=== PATIENT | male | born 1945 | race Caucasian/White ===

== ENCOUNTER 2017-02-12 13:44 | Emergency (ER) | payer OTHER ==
[~2017-02-12] VITALS: Ht 182.9 cm; Wt 108.9 kg
[2017-02-12 13:56] VITALS: BP 147/93
[2017-02-12] MEDS ORDERED: LEDI1TAB PO (13:56)
[2017-02-12] MEDS ORDERED: ONDANSETRON 4 MG/2 ML VIAL IVP ONE (14:10)
[2017-02-12] MEDS ORDERED: FAMOTIDINE 20 MG/2 ML VIAL IVP ONE (14:10)
[2017-02-12] MEDS ORDERED: NACL 0.9% 1,000 ML IV SCH (14:10)
[2017-02-12 14:31] LABS: BASOPHILS # (AUTO) 0.1 K/uL (0.00-0.22); BASOPHILS % (AUTO) 1.5 % (0.0-2.0); EOSINOPHILS # (AUTO) 0.3 K/uL (0-0.4); EOSINOPHILS % (AUTO) 5.9 % (0.0-4.0); HEMATOCRIT 35.8 % (36-52); HEMOGLOBIN 11.6 g/dL (12.0-18.0); LYMPHOCYTES # (AUTO) 1.3 K/uL (2.0-11.5); LYMPHOCYTES % (AUTO) 30.8 % (20.5-51.1); MEAN CORPUSCULAR HEMOGLOBIN 29 pg (27-31); MEAN CORPUSCULAR HGB CONC 32 g/dL (33-37); MEAN CORPUSCULAR VOLUME 89 fL (80-94); MONOCYTES # (AUTO) 0.4 K/uL (0.8-1.0); NEUTROPHILS # (AUTO) 2.2 K/uL (1.8-7.7); NEUTROPHILS % (AUTO) 51.8 % (42.2-75.2); PLATELET COUNT (AUTO) 177 K/uL (140-450); RED BLOOD CELL COUNT(AUTO) 4.02 MIL/uL (4.20-6.10); RED CELL DISTRIBUTION WIDTH 12.6 % (11.6-13.7); WHITE BLOOD COUNT (AUTO) 4.4 K/uL (4.8-10.8)
[2017-02-12 14:47] LABS: ANION GAP 6.9 (8-16); CALCIUM 8.7 mg/dL (8.5-10.1); CHLORIDE 103 mmol/L (98-107); CREATININE 1.1 mg/dL (0.6-1.3); GLUCOSE 166 mg/dL (74-106); POTASSIUM 3.9 mmol/L (3.5-5.1); SODIUM SERUM 140 mmol/L (136-145); UREA NITROGEN, BLOOD 13 mg/dL (7-18)
[2017-02-12 14:53] LABS: ALANINE AMINOTRANSFERASE 28 U/L (12-78); ALBUMIN 3.2 g/dL (3.4-5.0); ALKALINE PHOSPHATASE 79 U/L (46-116); AMYLASE 51 U/L (25-115); ASPARTATE AMINOTRANSFERASE 29 U/L (15-37); LIPASE 81 U/L (73-393); TOTAL BILIRUBIN 0.7 mg/dL (0.0-1.0)
--- NOTE | 2017-02-12 15:02 | NUR ---
Patient ambulated to bed 5. RN evaluating patient at bedside.
--- NOTE | 2017-02-12 15:03 | NUR ---
72M BIB SELF C/O ABDOMINAL DISTENTION X 4 MONTHS; PT STATES HX: HEP C AND HAS BEEN TAKING MEDICATION FOR HEP C X 12 WEEKS; ABDOMEN ROUND, FIRM, ASCITIC, DISTENDED AT THIS TIME; HYPOACTIVE BOWEL SOUNDS X 4 QUADRANTS; PT DENIES ANY PAIN, N/V/D AT THIS TIME, BUT STATES FEELS ABDOMINAL "TIGHTNESS" W/ AMBULATION; PT A&OX4, PERRLA, BL LUNG SOUNDS CLEAR, RR EVEN/UNLABORED, SKIN IS WARM/DRY/INTACT AT THIS TIME; PT RESTING IN BED W/ HOB ELEVATED AND IN LOWEST POSITION; POSITIONED FOR COMFORT; ER MD MADE AWARE OF STATUS. WILL CONTINUE TO MONITOR.
--- NOTE | 2017-02-12 15:04 | NUR ---
Dr. Olvera evaluating patient at bedside.
--- NOTE | 2017-02-12 16:30 | NUR ---
Patient appears to be resting comfortably in bed. Vital Signs within normal limits. Respirations even and unlabored. WILL CONTINUE TO MONITOR.
[2017-02-12 17:13] LABS: APPEARANCE,URINE CLEAR (CLEAR); BILIRUBIN,URINE 1+ (NEGATIVE); BLOOD, URINE NEGATIVE (NEGATIVE); COLOR,URINE YELLOW (YELLOW); LEUKOCYTE ESTERASE ,URINE NEGATIVE (NEGATIVE); NITRITE, URINE NEGATIVE (NEGATIVE); PH,URINE 5.5 (5.0-9.0); PROTEIN,URINE NEGATIVE (NEGATIVE); UGLUCOSE NEGATIVE (NEGATIVE)
[2017-02-12 17:24] LABS: ICTOTEST NEGATIVE (NEGATIVE); RBC,URINE NONE SEEN /HPF (0-5); WBC,URINE NONE SEEN /HPF (0-5)
[2017-02-12 17:25] LABS: BACTERIA,URINE RARE /HPF (None Seen); SQUAMOUS EPITHELIAL CELL,UR 0-3 (FEW) /LPF (0-3 (FEW))
[2017-02-12 17:29] LABS: AMPHETAMINE, URINE NEG. ng/ml (NEG <=1000); BARBITURATE, URINE NEG. ng/ml (NEG <=200); BENZODIAZEPINE, URINE NEG. ng/mL (NEG <=200); CANNABINOID, URINE NEG. ng/mL (NEG <=50); COCAINE, URINE NEG. ng/mL (NEG <=300); OPIATE, URINE POS. ng/mL (NEG <=2000); PHENCYCLIDINE SCREEN,URINE NEG. ng/mL (NEG <=25)
[2017-02-12 17:29] LABS: ALANINE AMINOTRANSFERASE 27 U/L (12-78); ALBUMIN 3.2 g/dL (3.4-5.0); ALCOHOL, BLOOD < 3 mg/dL (<3); ALKALINE PHOSPHATASE 77 U/L (46-116); ASPARTATE AMINOTRANSFERASE 33 U/L (15-37); BILIRUBIN,DIRECT 0.2 mg/dL (0.0-0.3); TOTAL BILIRUBIN 0.7 mg/dL (0.0-1.0); TOTAL PROTEIN, SERUM 7.7 g/dL (6.4-8.2)
[2017-02-12 17:30] LABS: INR 1.1 (0.8-1.2); PARTIAL THROMBOPLASTIN TIME 24.1 secs (22-35.6); PROTHROMBIN TIME 10.7 secs (10.8-13.4)
--- NOTE | 2017-02-12 17:45 | NUR ---
IV removed, catheter intact and site benign. Applied folded 4x4 gauze and tape to stop bleeding. PT TOELRATED PROCEDURE WELL.
[2017-02-12 17:47] VITALS: BP 107/53
--- NOTE | 2017-02-12 17:47 | NUR ---
Patient discharged with v/s stable. Written and verbal after care instructions given and explained. Patient alert, oriented and verbalized understanding of instructions. Ambulatory with steady gait. All questions addressed prior to discharge. ID band removed. Patient advised to follow up with PMD. Rx of ALBUTEROL 90MCG/ACTUATION given. Patient educated on indication of medication including possible reaction and side effects. Opportunity to ask questions provided and answered.
== END 2017-02-12 17:47 | disposition home or self-care (01) ==
LOC: MED 13:44
DX: R18.8 Other ascites (principal); J45.909 Unspecified asthma, uncomplicated
CPT/HCPCS: 36415; 80053; 80076; 80305; 81001; 82150; 83690; 85025; 85610; 85730; 96361; 96374; 96375; 99284; G0482; J2405; J3490; J7030

== ENCOUNTER 2017-11-22 06:10 | Emergency (ER) | payer OTHER ==
[~2017-11-22] VITALS: Ht 185.4 cm; Wt 115.0 kg
[~2017-11-22 06:10] MED LIST: LEDI1TAB PO
[2017-11-22 06:20] VITALS: BP 156/87
--- NOTE | 2017-11-22 06:26 | NUR ---
PT AMBULATED TO ER BED 04
--- NOTE | 2017-11-22 06:46 | NUR ---
Pt states Left medial knee pain x2-3 weeks. Described as a severe-ache. Pt states he has tried to self treat with medications given from freinds and stretching but is unable to achieve relief. A&Ox4. VSS. ER MD aware. Continue to monitor.
--- NOTE | 2017-11-22 07:21 | NUR ---
Report given to Tona LÓPEZ.
--- NOTE | 2017-11-22 07:28 | NUR ---
Patient discharged with v/s stable. Written and verbal after care instructions given and explained. Patient alert, oriented and verbalized understanding of instructions. Ambulatory with steady gait. All questions addressed prior to discharge. ID band removed. Patient advised to follow up with PMD. Rx of ARTHROTEC given. Patient educated on indication of medication including possible reaction and side effects. Opportunity to ask questions provided and answered.
[2017-11-22] MEDS ORDERED: IBUPROFEN 600 MG TAB PO ONE (07:35)
[2017-11-22 09:44] VITALS: BP 156/87
== END 2017-11-22 07:28 | disposition home or self-care (01) ==
LOC: MED 06:10
DX: M17.12 Unilateral primary osteoarthritis, left knee (principal)
CPT/HCPCS: 73562; 99284; Q0092

== ENCOUNTER 2019-02-11 16:54 | Inpatient (IN) | payer OTHER ==
[~2019-02-11] VITALS: Ht 177.8 cm; Wt 102.2 kg
[2019-02-11 16:58] VITALS: BP 178/96
--- NOTE | 2019-02-11 17:01 | NUR ---
PATIENT PRESENTS TO ED WITH INTERMITTENT LEFT SIDED CHEST PAIN X 4 DAYS . DENIES N/V. AAOX4 WITH EVEN AND STEADY GAIT. HR EVEN AND REGULAR; PT DENIES ANY FEVER,SOB, OR COUGH AT THIS TIME; PATIENT STATES PAIN OF 8/10 AT THIS TIME; DENIES ANY ETOH/DRUG USE. PATIENT POSITIONED FOR COMFORT; HOB ELEVATED; BEDRAILS UP X2; BED DOWN. PT CONNECTED TO MONITOR. ER MD MADE AWARE OF PT STATUS.
[2019-02-11] MEDS ORDERED: ASPIRIN 325 MG TAB PO ONE (18:00)
[2019-02-11 18:33] LABS: BASOPHILS % (AUTO) 0.5 % (0.0-2.0); EOSINOPHILS # (AUTO) 0.1 K/uL (0-0.4); EOSINOPHILS % (AUTO) 1.3 % (0.0-4.0); HEMATOCRIT 37.3 % (36-52); HEMOGLOBIN 12.8 g/dL (12.0-18.0); LYMPHOCYTES # (AUTO) 1.2 K/uL (2.0-11.5); LYMPHOCYTES % (AUTO) 16.7 % (20.5-51.1); MEAN CORPUSCULAR HEMOGLOBIN 30 pg (27-31); MEAN CORPUSCULAR HGB CONC 34 g/dL (33-37); MEAN CORPUSCULAR VOLUME 87.4 fL (80-94); MONOCYTES # (AUTO) 0.4 K/uL (0.8-1.0); MONOCYTES % (AUTO) 6.3 % (1.7-9.3); NEUTROPHILS # (AUTO) 5.2 K/uL (1.8-7.7); NEUTROPHILS % (AUTO) 75.2 % (42.2-75.2); PLATELET COUNT (AUTO) 216 K/uL (140-450); RED BLOOD CELL COUNT(AUTO) 4.27 MIL/uL (4.20-6.10); RED CELL DISTRIBUTION WIDTH 13.4 % (11.6-13.7)
[2019-02-11 18:55] LABS: ALBUMIN 3.8 g/dL (3.4-5.0); ANION GAP 8.6 (8-16); ASPARTATE AMINOTRANSFERASE 24 U/L (15-37); CARBON DIOXIDE 30.5 mmol/L (21-32); CHLORIDE 100 mmol/L (98-107); CREATININE 1.1 mg/dL (0.7-1.3); GLUCOSE 132 mg/dL (74-106); LIPASE 148 U/L (73-393); POTASSIUM 4.1 mmol/L (3.5-5.1); SODIUM SERUM 135 mmol/L (136-145); TOTAL BILIRUBIN 0.7 mg/dL (0.0-1.0); UREA NITROGEN, BLOOD 18 mg/dL (7-18)
[2019-02-11] MEDS: NACL 0.9% 1,000 ML IV SCH (19:07)
[2019-02-11] MEDS ORDERED: DOCUSATE SODIUM 100 MG GELCAP PO PRN (19:10)
[2019-02-11] MEDS ORDERED: ONDANSETRON 4 MG/2 ML VIAL IM/IVP PRN (19:10)
[2019-02-11] MEDS ORDERED: ACETAMINOPHEN 325 MG TAB PO PRN (19:10)
[2019-02-11] MEDS ORDERED: HYDROcodone/APAP 7.5/325 MG 1 TAB PO PRN (19:10)
--- NOTE | 2019-02-11 19:30 | NUR ---
RECEIVED BEDSIDE REPOT FROM ER NURSE, PATIENT AMBULATORY FROM WC TO BED, STEADY GAIT, AAOX 4, SKIN INTACT, LEFT FA 22 G SL, BP 163/85, DENIES CHEST PAIN, TOLD DR MORALES, MRSA SCREEN COLLECTED, ADMISSION QUESTIONS ANSWERED.
[2019-02-11 19:32] VITALS: BP 163/85
--- NOTE | 2019-02-11 19:35 | NUR ---
Patient will be admitted under the care of Dr Giordano. Admited to telemetry floor to room 127A. Report to given to RENE Mcbride.
[2019-02-11 19:43] LABS: CREATINE KINASE MB 3.1 ng/mL (0-3.6)
[2019-02-11 19:52] LABS: PROTHROMBIN TIME 10.7 secs (10.8-13.4)
[2019-02-11 19:53] LABS: CHOL/HDL RATIO 2.7 (1-4.5); FREE T4 (FREE THYROXINE) 1.1 ng/dL (0.76-1.46); MAGNESIUM 2.1 mg/dL (1.8-2.4); PHOSPHORUS 3.9 mg/dL (2.5-4.9); THYROID STIMULATING HORMONE 1.54 uIU/mL (0.34-3.74)
[2019-02-11] MEDS ORDERED: NITROGLYCERIN 0.4 MG TAB SL PRN (21:35)
[2019-02-11] MEDS ORDERED: SIMETHICONE 80 MG TAB.CHEW PO PRN (21:40)
[2019-02-11] MEDS: METOPROLOL 25 MG TAB PO SCH (21:42)
--- NOTE | 2019-02-11 21:42 | NUR ---
STARTED IVF NS AT 60 ML/HR, GAVE METOPROLOL AND COLACE.
[2019-02-11] MEDS ORDERED: MEDICATION REC. PHARMACY CONS. 1 EA MISC MC PRN (21:45)
--- NOTE | 2019-02-11 22:00 | NUR ---
EXPLAINED NEED FOR URINE SAMPLE, PATIENT VERBALIZED UNDERSTANDING
--- NOTE | 2019-02-11 23:00 | NUR ---
RESTING IN BED, NO SIGNS OF DISTRESS.
[2019-02-12] VITALS (7 sets, daily range): BP systolic 107–194; BP diastolic 56–80
--- NOTE | 2019-02-12 00:30 | NUR ---
DUE HEPARIN GIVEN
--- NOTE | 2019-02-12 02:40 | NUR ---
ASLEEP IN BED NO SIGNS OF DISTRESS.
--- NOTE | 2019-02-12 04:00 | NUR ---
BP 151/78 HR 55
--- NOTE | 2019-02-12 07:27 | NUR ---
ENDORSED PATIENT TO DAY SHIFT NURSE, PATIENT STABLE.
--- NOTE | 2019-02-12 08:00 | NUR ---
RECIEVED PT FROM VERIFICATION SPECIALIST NURSE ,PT IS AWAKE ON BED, NOT IN RESP.DISTRESS ,ON ROOM AIR. IV SITE INTACT AND PATENT.ENCORAGED VERBALIZE FEELINGS AND NEEDS. PLAN OF CARE WAS DISCUSSED WITH PT., BED ON LOW POSITION ,SIDE RAILS, CALL LIGHT IS WITHIN REACH
[2019-02-12 08:33] LABS: BARBITURATE, URINE NEG. ng/ml (NEG <=200); BENZODIAZEPINE, URINE NEG. ng/mL (NEG <=200); CANNABINOID, URINE NEG. ng/mL (NEG <=50); COCAINE, URINE NEG. ng/mL (NEG <=300); OPIATE, URINE POS. ng/mL (NEG <=2000); PHENCYCLIDINE SCREEN,URINE NEG. ng/mL (NEG <=25)
[2019-02-12 08:34] LABS: BILIRUBIN,URINE NEGATIVE (NEGATIVE); BLOOD, URINE TRACE-L (NEGATIVE); LEUKOCYTE ESTERASE ,URINE NEGATIVE (NEGATIVE); NITRITE, URINE NEGATIVE (NEGATIVE); UGLUCOSE NEGATIVE (NEGATIVE)
--- NOTE | 2019-02-12 08:41 | NUR ---
PATIENT HAS BEEN SCREENED AND CATEGORIZED MODERATE NUTRITION RISK. PATIENT WILL BE SEEN WITHIN 3-5 DAYS OF ADMISSION. 02/14/[address]
--- NOTE | 2019-02-12 08:45 | NUR ---
URINE SPECIMEN COLLECTED AND SENT TO LAB.
[2019-02-12] MEDS: METOPROLOL 25 MG TAB PO SCH (08:51)
[2019-02-12] MEDS: PANTOPRAZOLE 40 MG TABEC PO SCH (08:51)
[2019-02-12] MEDS: ECOTRIN 81 MG TABEC PO SCH (08:51)
[2019-02-12 08:57] LABS: APPEARANCE,URINE CLEAR (CLEAR); COLOR,URINE YELLOW (YELLOW)
[2019-02-12 08:58] LABS: RBC,URINE 0-5 /HPF (0-5); WBC,URINE 0-5 /HPF (0-5)
[2019-02-12] MEDS ORDERED: LISINOPRIL 5 MG TAB PO SCH ×2 (09:00→10:45)
--- NOTE | 2019-02-12 09:00 | NUR ---
PATIENT COMPLAINED OF FEELING NAUSEOUS, MED WAS GIVEN PER ORDER. PATIENT WAS INSTRUCTED NOT TO EAT ANYTHING TILL FEELING BETTER. PATIENT VERBALIZED UNDERSTANDING
--- NOTE | 2019-02-12 09:40 | NUR ---
PATIENT HAD EMESIS X 1, YELLOW, SMALL AMOUNT. DENIED DIZZINESS, CHEST PAIN. WILL CONTINUE TO MONITOR
--- NOTE | 2019-02-12 10:21 | NUR ---
DR. LEE WAS MADE AWARE OF PATIENT'S BRADYCARDIA. ADVISED TO CONTINUE TO MONITOR
[2019-02-12 11:11] LABS: BASOPHILS % (AUTO) 0.2 % (0.0-2.0); EOSINOPHILS % (AUTO) 0.2 % (0.0-4.0); HEMATOCRIT 37.9 % (36-52); HEMOGLOBIN 12.8 g/dL (12.0-18.0); LYMPHOCYTES # (AUTO) 0.7 K/uL (2.0-11.5); LYMPHOCYTES % (AUTO) 10.2 % (20.5-51.1); MEAN CORPUSCULAR HEMOGLOBIN 30 pg (27-31); MEAN CORPUSCULAR HGB CONC 34 g/dL (33-37); MEAN CORPUSCULAR VOLUME 87.8 fL (80-94); MONOCYTES # (AUTO) 0.2 K/uL (0.8-1.0); MONOCYTES % (AUTO) 3.5 % (1.7-9.3); NEUTROPHILS # (AUTO) 5.9 K/uL (1.8-7.7); NEUTROPHILS % (AUTO) 85.9 % (42.2-75.2); PLATELET COUNT (AUTO) 230 K/uL (140-450); RED BLOOD CELL COUNT(AUTO) 4.32 MIL/uL (4.20-6.10); RED CELL DISTRIBUTION WIDTH 13.2 % (11.6-13.7); WHITE BLOOD COUNT (AUTO) 6.9 K/uL (4.8-10.8)
[2019-02-12 11:22] LABS: ANION GAP 11.7 (8-16); CARBON DIOXIDE 28.4 mmol/L (21-32); CHLORIDE 101 mmol/L (98-107); GLUCOSE 146 mg/dL (74-106); POTASSIUM 4.1 mmol/L (3.5-5.1); SODIUM SERUM 137 mmol/L (136-145); UREA NITROGEN, BLOOD 18 mg/dL (7-18)
--- NOTE | 2019-02-12 12:30 | NUR ---
PATIENT WAS AWAKE, ALERT. RESPIRATION EVEN, UNLABOR ON ROOM AIR. DENIED PAIN, SOB, DIZZINESS, N/V. NO DISTRESS NOTED AT THIS TIME.
[2019-02-12] MEDS: NACL 0.9% 1,000 ML IV SCH (12:55)
--- NOTE | 2019-02-12 14:27 | NUR ---
VISITED PT. NOT IN RESP.DISTRESS,NO COMPLAINING OF PAIN, RESTED FAIRLY ON BED.PROVIDED ICE WATER ON BEDSIDE REQUESTED.CALL LIGHT WITH IN REACH
--- NOTE | 2019-02-12 16:00 | NUR ---
VISITED PATIENT,AWAKE ON BED, NOT IN RESP.DISTRESS .CALL LIGHT WITH IN REACH .
--- NOTE | 2019-02-12 16:00 | NUR ---
PATIENT WAS AWAKE, ALERT. RESPIRATION EVEN, UNLABOR ON ROOM AIR. DENIED PAIN, N/V. NO DISTRESS NOTED AT THIS TIME.
[2019-02-12] MEDS ORDERED: ATORVASTATIN 20 MG TAB PO SCH (17:00)
--- NOTE | 2019-02-12 18:00 | NUR ---
PATIENT WAS AWAKE, ALERT. RESPIRATION EVEN, UNLABOR ON ROOM AIR. PATIENT COMPLAINED OF CHEST PAIN, BUT REFUSED PAIN MEDICATION. NO DISTRESS NOTED AT THIS TIME
--- NOTE | 2019-02-12 19:30 | NUR ---
REPORT WAS GIVEN TO FIRE PREVENTION FORESTER NURSE. PATIENT IS STABLE AT THIS TIME
--- NOTE | 2019-02-12 19:31 | NUR ---
RECEIVED REPORT FROM DAY SHIFT NURSE GEORGE-RN AT BEDSIDE. PT RESTING IN BED, AOX4, ON ROOM AIR WITH RIGHT FA #22G RUNNING NS @60ML/HR. DISCUSSED PLAN OF CARE AND PT VERBALIZED UNDERSTANDING. NO S/S OF RESPIRATORY DISTRESS OR DISCOMFORT NOTED AT THIS TIME. BED IN LOWEST POSITION, BED BREAKS ON, BOTH SIDE RAILS UP. BEDSIDE TABLE AND CALL LIGHT ARE WITHIN REACH. WILL CONTINUE TO MONITOR.
--- NOTE | 2019-02-12 20:00 | NUR ---
VITAL SIGNS TAKEN AND TOLERATED WELL. NO S/S OF RESPIRATORY DISTRESS OR DISCOMFORT NOTED AT THIS TIME. WILL CONTINUE TO MONITOR.
--- NOTE | 2019-02-12 20:16 | NUR ---
SCHEDULED MEDICATION HEPARIN GIVEN AND TOLERATED WELL. NO S/S OF RESPIRATORY DISTRESS OR DISCOMFORT NOTED AT THIS TIME. WILL CONTINUE TO MONITOR.
--- NOTE | 2019-02-12 21:00 | NUR ---
PT RESTING IN BED. NO S/S OF RESPIRATORY DISTRESS OR DISCOMFORT NOTED AT THIS TIME. WILL CONTINUE TO MONITOR.
--- NOTE | 2019-02-12 23:00 | NUR ---
PT SLEEPING IN BED. NO S/S OF RESPIRATORY DISTRESS OR DISCOMFORT NOTED AT THIS TIME. WILL CONTINUE TO MONITOR.
[2019-02-13] VITALS: BP 122/65
--- NOTE | 2019-02-13 | NUR ---
VITAL SIGNS TAKEN AND TOLERATED WELL. NO S/S OF RESPIRATORY DISTRESS OR DISCOMFORT NOTED AT THIS TIME. WILL CONTINUE TO MONITOR.
--- NOTE | 2019-02-13 02:00 | NUR ---
PT SLEEPING IN BED. NO S/S OF RESPIRATORY DISTRESS OR DISCOMFORT NOTED AT THIS TIME. WILL CONTINUE TO MONITOR.
[2019-02-13 04:00] VITALS: BP 137/76
--- NOTE | 2019-02-13 04:00 | NUR ---
VITAL SIGNS TAKEN AND TOLERATED WELL. NO S/S OF RESPIRATORY DISTRESS OR DISCOMFORT NOTED AT THIS TIME. WILL CONTINUE TO MONITOR.
[2019-02-13] MEDS: NACL 0.9% 1,000 ML IV SCH (05:01)
--- NOTE | 2019-02-13 06:00 | NUR ---
PT CONTINUES TO SLEEP IN BED. NO S/S OF RESPIRATORY DISTRESS OR DISCOMFORT NOTED AT THIS TIME. WILL CONTINUE TO MONITOR.
[2019-02-13 06:14] LABS: T4 (THYROXINE) 7.3 ug/dL (4.5-12.0)
[2019-02-13 06:52] LABS: BASOPHILS # (AUTO) 0.1 K/uL (0.00-0.22); BASOPHILS % (AUTO) 0.5 % (0.0-2.0); EOSINOPHILS # (AUTO) 0.1 K/uL (0-0.4); EOSINOPHILS % (AUTO) 1.4 % (0.0-4.0); HEMATOCRIT 38.9 % (36-52); LYMPHOCYTES # (AUTO) 3.3 K/uL (2.0-11.5); LYMPHOCYTES % (AUTO) 31.8 % (20.5-51.1); MEAN CORPUSCULAR HEMOGLOBIN 30 pg (27-31); MEAN CORPUSCULAR HGB CONC 33 g/dL (33-37); MEAN CORPUSCULAR VOLUME 88.8 fL (80-94); MONOCYTES # (AUTO) 0.7 K/uL (0.8-1.0); MONOCYTES % (AUTO) 6.8 % (1.7-9.3); NEUTROPHILS # (AUTO) 6.1 K/uL (1.8-7.7); NEUTROPHILS % (AUTO) 59.5 % (42.2-75.2); PLATELET COUNT (AUTO) 181 K/uL (140-450); RED BLOOD CELL COUNT(AUTO) 4.38 MIL/uL (4.20-6.10); RED CELL DISTRIBUTION WIDTH 13.9 % (11.6-13.7); WHITE BLOOD COUNT (AUTO) 10.3 K/uL (4.8-10.8)
--- NOTE | 2019-02-13 07:14 | NUR ---
ENDORSED PT CARE TO DAY SHIFT NURSE BLUE AT BEDSIDE FOR CONTINUITY OF CARE.
[2019-02-13 07:32] LABS: ANION GAP 11.5 (8-16); CARBON DIOXIDE 27.4 mmol/L (21-32); CHLORIDE 103 mmol/L (98-107); POTASSIUM 4.9 mmol/L (3.5-5.1); SODIUM SERUM 137 mmol/L (136-145)
[2019-02-13 07:33] LABS: CREATININE 1.2 mg/dL (0.7-1.3); GLUCOSE 108 mg/dL (74-106); UREA NITROGEN, BLOOD 26 mg/dL (7-18)
[2019-02-13 07:41] LABS: MAGNESIUM 2.1 mg/dL (1.8-2.4); PHOSPHORUS 3.2 mg/dL (2.5-4.9)
--- NOTE | 2019-02-13 07:45 | NUR ---
RECIEVED REPORTING FROM [place] AIDE.PT.WAS AWAKE ,RESPIRATION EVEN,UNLABORED ,ON ROOM AIR. IV SITE INTACT AND PATENT.PLAN OF CARE WAS DISCUSSED WITH THE PATIENT. CALL LIGHT WITH IN REACH.
[2019-02-13 08:00] VITALS: BP 152/80
[2019-02-13 08:10] VITALS: BP 152/80
[2019-02-13] MEDS ORDERED: LISINOPRIL 10 MG TAB PO SCH (09:00)
[2019-02-13] MEDS: ECOTRIN 81 MG TABEC PO SCH (09:29)
[2019-02-13] MEDS: PANTOPRAZOLE 40 MG TABEC PO SCH (09:30)
--- NOTE | 2019-02-13 10:00 | NUR ---
PATIENT WAS AWAKE. RESPIRATION EVEN AND UNLABORED . IVF SITE INTACT AND PATENT.CALL LIGHT WITH IN REACH
[2019-02-13 12:00] VITALS: BP 126/90
--- NOTE | 2019-02-13 12:00 | NUR ---
PATIENT WAS AWAKE, ALERT. RESPIRATION EVEN, UNLABOR ON ROOM AIR. DENIED PAIN, SOB AT THIS TIME. NO DISTRESS NOTED. CALL LIGHT WITHIN REACH
--- NOTE | 2019-02-13 14:10 | NUR ---
PATIENT WAS UPDATED WITH DISCHARGE ORDER. NO DISTRESS NOTED AT THIS TIME
[2019-02-13] MEDS ORDERED: LOSA50TA66 PO (14:28)
--- NOTE | 2019-02-13 15:35 | NUR ---
DISCHARGE INSTRUCTION AND PRESCRIPTIONS WERE GIVEN AND EXPLAINED TO THE PATIENT. PATIENT VERBALIZED UNDERSTANDING. PATIENT REFUSED VACCINES. IV WAS REMOVED, CATHETER INTACT, NO ACTIVE BLEEDING SEEN. COAL CONVEYOR OPERATOR AND ID BAND WERE REMOVED. ALL BELONGINGS WERE TAKEN WITH THE PATIENT. PATIENT WAS ESCORTED OUT BY STAFF, AMBULATORY IN WHEELCHAIR. PATIENT IS STABLE AT THIS TIME
== END 2019-02-13 15:35 | disposition home or self-care (01) | DRG 206 ==
LOC: MED 16:54 → MMU 19:13
PROVIDERS: ADMIT General Practice; ATTEND General Practice
DX: M94.0 Chondrocostal junction syndrome [Tietze] (principal); I42.9 Cardiomyopathy, unspecified; E87.1 Hypo-osmolality and hyponatremia; J45.909 Unspecified asthma, uncomplicated; E78.5 Hyperlipidemia, unspecified; R73.9 Hyperglycemia, unspecified; I10 Essential (primary) hypertension; Z79.899 Other long term (current) drug therapy
CPT/HCPCS: 36415; 71045; 71250; 80048; 80053; 80305; 81001; 82150; 82550; 82553; 83036; 83690; 83735; 83880; 84100; 84436; 84439; 84443; 84479; 84484; 85025; 85610; 85730; 87081; 93005; 99285; J1644; J2405; J7030; Q0092

== ENCOUNTER 2019-06-12 08:18 | Emergency (ER) | payer OTHER ==
[~2019-06-12] VITALS: Ht 182.9 cm; Wt 109.9 kg
[~2019-06-12 08:18] MED LIST changes: -LEDI1TAB PO; +LOSA50TA66 PO
[2019-06-12 08:20] VITALS: BP 140/94
[2019-06-12 10:09] LABS: BASOPHILS % (AUTO) 0.7 % (0.0-2.0); EOSINOPHILS # (AUTO) 0.1 K/uL (0-0.4); EOSINOPHILS % (AUTO) 3.4 % (0.0-4.0); HEMATOCRIT 32.5 % (36-52); HEMOGLOBIN 10.8 g/dL (12.0-18.0); LYMPHOCYTES # (AUTO) 1.1 K/uL (2.0-11.5); LYMPHOCYTES % (AUTO) 29.7 % (20.5-51.1); MEAN CORPUSCULAR HEMOGLOBIN 29 pg (27-31); MEAN CORPUSCULAR HGB CONC 33 g/dL (33-37); MEAN CORPUSCULAR VOLUME 88.2 fL (80-94); MONOCYTES # (AUTO) 0.4 K/uL (0.8-1.0); MONOCYTES % (AUTO) 11.3 % (1.7-9.3); NEUTROPHILS # (AUTO) 2.1 K/uL (1.8-7.7); NEUTROPHILS % (AUTO) 54.9 % (42.2-75.2); PLATELET COUNT (AUTO) 188 K/uL (140-450); RED BLOOD CELL COUNT(AUTO) 3.68 MIL/uL (4.20-6.10); RED CELL DISTRIBUTION WIDTH 13.5 % (11.6-13.7); WHITE BLOOD COUNT (AUTO) 3.8 K/uL (4.8-10.8)
[2019-06-12 11:03] LABS: ANION GAP 8.7 (8-16); ASPARTATE AMINOTRANSFERASE 24 U/L (15-37); CARBON DIOXIDE 29.5 mmol/L (21-32); CHLORIDE 106 mmol/L (98-107); CREATININE 1.1 mg/dL (0.7-1.3); GLUCOSE 116 mg/dL (74-106); POTASSIUM 4.2 mmol/L (3.5-5.1); SODIUM SERUM 140 mmol/L (136-145); UREA NITROGEN, BLOOD 18 mg/dL (7-18)
[2019-06-12 11:04] LABS: ALBUMIN 3.1 g/dL (3.4-5.0)
[2019-06-12 11:05] LABS: APPEARANCE,URINE CLEAR (CLEAR); BILIRUBIN,URINE NEGATIVE (NEGATIVE); BLOOD, URINE NEGATIVE (NEGATIVE); COLOR,URINE YELLOW (YELLOW); LEUKOCYTE ESTERASE ,URINE NEGATIVE (NEGATIVE); NITRITE, URINE NEGATIVE (NEGATIVE); UGLUCOSE NEGATIVE (NEGATIVE)
[2019-06-12 11:22] LABS: TOTAL BILIRUBIN 0.4 mg/dL (0.0-1.0)
[2019-06-12 11:42] VITALS: BP 140/94
== END 2019-06-12 11:42 | disposition home or self-care (01) ==
LOC: MED 08:18
DX: R60.0 Localized edema (principal); I42.9 Cardiomyopathy, unspecified; R03.0 Elevated blood-pressure reading, without diagnosis of hypertension; F17.210 Nicotine dependence, cigarettes, uncomplicated; F15.90 Other stimulant use, unspecified, uncomplicated; Z79.899 Other long term (current) drug therapy
CPT/HCPCS: 36415; 71045; 80053; 81003; 83880; 84484; 85025; 93005; 99284; Q0092

== ENCOUNTER 2020-04-16 11:19 | Inpatient (IN) | payer OTHER ==
[2020-04-15 10:40] VITALS: BP 175/70
[~2020-04-16] VITALS: Ht 182.9 cm; Wt 110.8 kg
[2020-04-16 11:27] VITALS: BP 149/102
--- NOTE | 2020-04-16 11:27 | NUR ---
Patient to bed 7. RN evaluating patient at bedside.
--- NOTE | 2020-04-16 11:34 | NUR ---
Dr. Canales is evaluating the patient at bedside.
--- NOTE | 2020-04-16 11:35 | NUR ---
PT C/O BLOOD IN STOOL FOR 7 DAYS W/O ABDOMINAL PAIN OR N/V/D; PT STATES HAVING INTERMITTENT ABDOMINAL BLOATING FOR A LONG TIME. NO DISCOLORATION OR TENDERNESS/REBOUND TENDERNESS ON PALPATION ON THE ABDOMEN. PT DENIES ANY FEVER, CP, SOB, OR COUGH AT THIS TIME; PATIENT STATES PAIN OF 0/10 AT THIS TIME; VSS; PATIENT POSITIONED FOR COMFORT; HOB ELEVATED; BEDRAILS UP X1; BED DOWN. ER MD MADE AWARE OF PT STATUS.
[2020-04-16] MEDS ORDERED: PANTOPRAZOLE 40 MG INJ VIAL IVP ONE (11:40)
--- NOTE | 2020-04-16 11:41 | NUR ---
gi tech at bedside.
[2020-04-16 12:09] LABS: BASOPHILS % (AUTO) 0.5 % (0.0-2.0); EOSINOPHILS # (AUTO) 0.2 K/uL (0-0.4); EOSINOPHILS % (AUTO) 2.8 % (0.0-4.0); HEMATOCRIT 37.7 % (36-52); HEMOGLOBIN 12.4 g/dL (12.0-18.0); LYMPHOCYTES # (AUTO) 2.6 K/uL (2.0-11.5); LYMPHOCYTES % (AUTO) 40.8 % (20.5-51.1); MEAN CORPUSCULAR HEMOGLOBIN 29 pg (27-31); MEAN CORPUSCULAR HGB CONC 33 g/dL (33-37); MEAN CORPUSCULAR VOLUME 88.4 fL (80-94); MONOCYTES # (AUTO) 0.5 K/uL (0.8-1.0); MONOCYTES % (AUTO) 8.5 % (1.7-9.3); NEUTROPHILS % (AUTO) 47.4 % (42.2-75.2); PLATELET COUNT (AUTO) 215 K/uL (140-450); RED BLOOD CELL COUNT(AUTO) 4.27 MIL/uL (4.20-6.10); RED CELL DISTRIBUTION WIDTH 13.5 % (11.6-13.7); WHITE BLOOD COUNT (AUTO) 6.3 K/uL (4.8-10.8)
[2020-04-16 12:25] LABS: PROTHROMBIN TIME 10.3 secs (10.8-13.4)
[2020-04-16 12:31] LABS: ALBUMIN 3.6 g/dL (3.4-5.0); ANION GAP 10.3 (8-16); ASPARTATE AMINOTRANSFERASE 36 U/L (15-37); CHLORIDE 102 mmol/L (98-107); CREATININE 1.1 mg/dL (0.6-1.3); GLUCOSE 110 mg/dL (74-106); POTASSIUM 4.3 mmol/L (3.5-5.1); SODIUM SERUM 141 mmol/L (136-145); TOTAL BILIRUBIN 0.5 mg/dL (0.0-1.0); UREA NITROGEN, BLOOD 17 mg/dL (7-18)
--- NOTE | 2020-04-16 12:52 | NUR ---
Dr. Canales is re-evaluating the patient at bedside.
[2020-04-16] MEDS ORDERED: NACL 0.9% 1,000 ML IV SCH (13:12)
[2020-04-16] MEDS ORDERED: ACETAMINOPHEN 325 MG TAB PO PRN (13:15)
[2020-04-16] MEDS ORDERED: ONDANSETRON 4 MG/2 ML VIAL IVP PRN (13:15)
[2020-04-16] MEDS ORDERED: POLYETHYLENE GLYCOL 17 GM/PKT PO SCH (13:49)
[2020-04-16] MEDS ORDERED: LACTULOSE 20 GM/30 ML UDC PO SCH (14:00)
[2020-04-16] MEDS ORDERED: MAGNESIUM CITRATE 300 ML BTL PO SCH (14:00)
[2020-04-16] MEDS: TAMSULOSIN 0.4 MG CAP PO SCH (14:11)
[2020-04-16 14:14] LABS: FREE T4 (FREE THYROXINE) 0.99 ng/dL (0.76-1.46); MAGNESIUM 2.1 mg/dL (1.8-2.4); PHOSPHORUS 3.2 mg/dL (2.5-4.9); THYROID STIMULATING HORMONE 1.51 uIU/mL (0.34-3.74)
--- NOTE | 2020-04-16 14:30 | NUR ---
LIQUID DIET LUNCH PROVIDED TO PT AT BEDSIDE.
--- NOTE | 2020-04-16 15:30 | NUR ---
PT AMBULATED TO THE BATHROOM WITH STEADY GAIT.
--- NOTE | 2020-04-16 17:02 | NUR ---
Dr. Fernandez is evaluating the patient at bedside.
[2020-04-16] MEDS: POLYETHYLENE GLYCOL 17 GM/PKT PO SCH (17:31)
[2020-04-16] MEDS: LACTULOSE 20 GM/30 ML UDC PO SCH ×2 (17:32→22:21)
[2020-04-16] MEDS ORDERED: TAMS0.4C96 PO (18:00)
--- NOTE | 2020-04-16 18:05 | NUR ---
Patient will be admitted to care of GI BLEED. Admited to MED-SURG. Will go to room 122A. Belongings list completed. Report to RENE Burrows.
--- NOTE | 2020-04-16 18:06 | NUR ---
PT ARRIVED FROM ED, CAME TO ED FOR C/O BLOODY STOOL X5 DAYS. AAOX4, ABLE TO MAKE NEEDS KNOWN, SPEAKING IN FULL SENTENCES, RR EVEN AND UNLABORED. VSS. DENIES ANY PAIN OR DISCOMFORT. SKIN PINK. IVF INFUSING WELL. INSTRUCTED PT TO KEEP NPO STATUS, PT UNDERSTOOD AND AGREED. MRSA SWAB COLLECTED. BP 147/64, HR 62, O2 95% ON RA 98.0 ORAL TEMP
[2020-04-16 19:15] VITALS: BP 147/84
--- NOTE | 2020-04-16 19:15 | NUR ---
RECEIVED PT FROM DAY RN. PT IS AOX4 ON ROOM AIR. AMBULATORY. MED SURG. NO C/O PAIN AT THIS TIME. NO S/S RESPIRATORY DISTRESS. SKIN WARM AND DRY. IVF INFUSING ON RIGHT AC 20G, NS AT KVO. BED ON LOW POSITION, SIDE RAILS UP X2, CALL LIGHT WITHIN REACH. ORIENTED TO HOSPITAL ROUTINE, PLAN OF CARE DISCUSSED, PT VERBALIZED UNDERSTANDING.
--- NOTE | 2020-04-16 21:00 | NUR ---
UP TO THE BATHROOM. VOIDED AND PASSED SOME GAS. HE SAID HE IS ALREADY CLEAN ON HIS BOWEL. INSTRUCTED TO CALL IF HAS BM SO WILL CHECK THE OUTPUT
[2020-04-16] MEDS: PANTOPRAZOLE 40 MG INJ VIAL IVP SCH (22:20)
[2020-04-16] MEDS: DOCUSATE SODIUM 100 MG GELCAP PO SCH (22:21)
--- NOTE | 2020-04-16 23:00 | NUR ---
MADE ROUNDS. PT IS SLEEPING. NO S/S OF ANY PAIN NOTED.
[2020-04-17] VITALS (7 sets, daily range): BP systolic 114–184; BP diastolic 66–87
--- NOTE | 2020-04-17 00:30 | NUR ---
MADE ROUNDS. PT AWAKE BUT NO /CO ANY DISCOMFORT /PAIN NOTED.
--- NOTE | 2020-04-17 02:00 | NUR ---
MADE ROUNDS. PT ASLEEP. NO S/S OF ANY DISCOMFORT NOTED. WILL CONTINUE TO MONITOR.
--- NOTE | 2020-04-17 05:00 | NUR ---
BED CHANGED. NO C/O ANY PAIN NOTED. STILL NEED SOME URINE SPECIMEN FOR UA. BOTTLE PROVIDED AND INSTRUCTED PT .
[2020-04-17 06:46] LABS: BASOPHILS # (AUTO) 0.1 K/uL (0.00-0.22); BASOPHILS % (AUTO) 1.2 % (0.0-2.0); EOSINOPHILS # (AUTO) 0.1 K/uL (0-0.4); EOSINOPHILS % (AUTO) 2.3 % (0.0-4.0); HEMATOCRIT 36.3 % (36-52); HEMOGLOBIN 11.9 g/dL (12.0-18.0); LYMPHOCYTES # (AUTO) 1.3 K/uL (2.0-11.5); LYMPHOCYTES % (AUTO) 25.8 % (20.5-51.1); MEAN CORPUSCULAR HEMOGLOBIN 29 pg (27-31); MEAN CORPUSCULAR HGB CONC 33 g/dL (33-37); MEAN CORPUSCULAR VOLUME 88.6 fL (80-94); MONOCYTES # (AUTO) 0.4 K/uL (0.8-1.0); MONOCYTES % (AUTO) 8.4 % (1.7-9.3); NEUTROPHILS # (AUTO) 3.1 K/uL (1.8-7.7); NEUTROPHILS % (AUTO) 62.3 % (42.2-75.2); PLATELET COUNT (AUTO) 197 K/uL (140-450); RED BLOOD CELL COUNT(AUTO) 4.09 MIL/uL (4.20-6.10); RED CELL DISTRIBUTION WIDTH 13.6 % (11.6-13.7); WHITE BLOOD COUNT (AUTO) 4.9 K/uL (4.8-10.8)
[2020-04-17 07:13] LABS: ANION GAP 9.7 (8-16); CHLORIDE 102 mmol/L (98-107); GLUCOSE 140 mg/dL (74-106); POTASSIUM 4.7 mmol/L (3.5-5.1); SODIUM SERUM 138 mmol/L (136-145); UREA NITROGEN, BLOOD 15 mg/dL (7-18)
--- NOTE | 2020-04-17 07:40 | NUR ---
ENDORSED PT IN STABLE CONDITION TO DAY RN FOR CONTINUITY OF CARE.
[2020-04-17 07:44] LABS: CHOL/HDL RATIO 2.7 (1-4.5); MAGNESIUM 2.2 mg/dL (1.8-2.4); PHOSPHORUS 2.9 mg/dL (2.5-4.9)
--- NOTE | 2020-04-17 08:44 | NUR ---
PATIENT HAS BEEN SCREENED AND CATEGORIZED MODERATE NUTRITION RISK. PATIENT WILL BE SEEN WITHIN 3-5 DAYS OF ADMISSION. 04/19/20 04/21/[address]
--- NOTE | 2020-04-17 08:52 | NUR ---
PT ALERT, AWAKE, ORIENTED, SKIN WARM TO TOUCH RESP. EVEN AND UNLABORED, ON ROOM AIR, IV SITE ON RIGHT WRIST,FLUSH WITH NORMAL SALINE, PATENT, PATIENT VERBALIZED HE IS CLEAN, MADE AWARE NEED TO CALL NURSE WHEN GOING TO BATHROOM, CALL LIGHT WITHIN EASY REACH.
[2020-04-17] MEDS ORDERED: TAMSULOSIN 0.4 MG CAP PO SCH (09:00)
[2020-04-17] MEDS: DOCUSATE SODIUM 100 MG GELCAP PO SCH (09:00)
[2020-04-17] MEDS: POLYETHYLENE GLYCOL 17 GM/PKT PO SCH (09:00)
[2020-04-17] MEDS: LACTULOSE 20 GM/30 ML UDC PO SCH (09:08)
[2020-04-17] MEDS: TAMSULOSIN 0.4 MG CAP PO SCH (09:08)
[2020-04-17] MEDS ORDERED: MIDAZOLAM 2 MG/2 ML VIAL ONE ×2 (09:11)
[2020-04-17] MEDS ORDERED: fentaNYL 0.05 MG/ML VIAL ONE (09:11)
[2020-04-17] MEDS: PANTOPRAZOLE 40 MG INJ VIAL IVP SCH (09:18)
--- NOTE | 2020-04-17 09:20 | NUR ---
GI CREW HERE AT BEDSIDE, WILL VB NET PROGRAMMER PATIENT FOR COLONOSCOPY, PATIENT ALERT, AWAKE, ABLE TO CONVERSED, NO SOB NOTED.REFUSED MIRALAX, COLACE.
[2020-04-17] MEDS: MIDAZOLAM 2 MG/2 ML VIAL IVP ONE ×2 (09:33→10:15)
[2020-04-17] MEDS: fentaNYL 0.05 MG/ML VIAL IVP ONE ×2 (09:34→10:15)
[2020-04-17] MEDS ORDERED: LACTULOSE 20 GM/30 ML UDC PO SCH (10:25)
--- NOTE | 2020-04-17 10:42 | NUR ---
CAME BACK FROM SURGERY, PATIENT, ALERT, AWAKE, SLEEPY, KEEP PATIENT COMFORTABLE.
--- NOTE | 2020-04-17 11:29 | NUR ---
RELAYED TO DR. GÓMEZ PATIENT NAUSEOUS, CLAIMED FEELING WELL, BP ELEVATED, MD WILL EVALUATE PATIENT
[2020-04-17] MEDS ORDERED: hydrALAZINE 20 MG/ML VIAL IVP SCH (12:00)
[2020-04-17 13:02] LABS: APPEARANCE,URINE CLEAR (CLEAR); BILIRUBIN,URINE NEGATIVE (NEGATIVE); BLOOD, URINE NEGATIVE (NEGATIVE); COLOR,URINE YELLOW (YELLOW); LEUKOCYTE ESTERASE ,URINE NEGATIVE (NEGATIVE); NITRITE, URINE NEGATIVE (NEGATIVE); UGLUCOSE NEGATIVE (NEGATIVE)
--- NOTE | 2020-04-17 13:25 | NUR ---
PATIENT WANT TO GO AMA, DR GÓMEZ TALKED TO HIM FOR A LONG TIME BUT PATIENT STILL IS INSISTENT TO GO HOME, PATIENT SIGNED AMA , PATIENT ALERT, AWAKE BUT SLEEPY, PATIENT REFUSED ANY FAMILY FOR ME TO CALL, NON COMPLIANT, WHEELED BY ELECTRON BEAM OPERATOR TO THE LOBBY.
--- NOTE | 2020-04-17 13:49 | NUR ---
FOLLOW UP CALL MADE TO PATIENT FAMILY, PATIENT ANSWER THE PHONE AND HE SAID HE IS FINE. UNABLE TO TALK TO OTHER FAMILY MEMBER
--- NOTE | 2020-04-17 15:30 | NUR ---
DC PLANNIN YRS OLD MALE PATIENT WAS ADMITTED FROM HOME WITH A DX OF GI BLEEDING. PT HAS A HX OF HTN , BPH . CXR SHOWED BLUNITING OF THE RIGHT SMALL PLEURAL EFFUSION. DR AISLINN WILDER PERFORMED EGD 3+ INTERNAL HEMORRHOID THE MOST LIKELY SOURCE OF BLEED , SEVER DIVERTICULOSIS . RECOMMENDED HIGH FIBER DIET . DC PLAN TO GO HOME WHEN STABLE. CM TO FOLLOW.
--- NOTE | 2020-04-17 15:59 | NUR ---
OUTDOOR LANDSCAPE ARCHITECT NOTE: Patient's Orientation Person Situation Place Time Information Provided By PATIENT Comments SW MET WITH PATIENT AT BEDSIDE. Nursery Attendant, Realtionship and Phone Number DIANE CARY [phone] Healthcare Power of Automotive Glass Technician No Does Patient Have a POLST No Identifying Problems No Social Work Triggers Is A Social Work Consult Needed No Mandate Report Filed No Explanation Of Identifying Problems PATIENT IS A 75-YEAR-OLD MALE ADMITTED FOR GI BLEED. PATIENT HAS PMHX OF ASTHMA, HYPERTENSION, AND BPH. Admitted From Home Pre-Admission Level Of Functioning Status Independent/Ambulatory Prior Resources/Services Used In Last 12 Months No Prior Resources Used Prior DME No Prior DME Used Living Situation Lives With Family House Patient Had Caregiver No Home Support CG/Fam Able To Meet Need Financial Issues No Known Financial Issue Factors/Needs No D/C Needs Identified Pt/Rep Participated In Discharge Plan Yes Patient/Family Agress With Discharge Plan Yes Discharge Plan Comments TENTATIVE DISCHARGE PLAN IS FOR PATIENT TO RETURN HOME. DC Plan Status Initiated
[2020-04-17] MEDS ORDERED: MINERAL OIL 30 ML UDC PO SCH (16:00)
[2020-04-18] MEDS ORDERED: MINERAL OIL 30 ML UDC PO SCH (09:00)
== END 2020-04-17 13:30 | disposition left against medical advice (07) | DRG 349 ==
LOC: MED 11:19 → MTU 13:12
PROVIDERS: ADMIT General Practice; ATTEND General Practice
PROC: 06LY4CC Occlusion of Hemorrhoidal Plexus with Extraluminal Device, Percutaneous Endoscopic Approach (ICD-10-PCS; principal; 2020-04-17 09:00)
PROC: 0DBP8ZZ Excision of Rectum, Via Natural or Artificial Opening Endoscopic (ICD-10-PCS; 2020-04-17 09:00)
DX: K64.8 Other hemorrhoids (principal); G89.29 Other chronic pain; M54.9 Dorsalgia, unspecified; I10 Essential (primary) hypertension; K56.41 Fecal impaction; K57.30 Diverticulosis of large intestine without perforation or abscess without bleeding; J45.909 Unspecified asthma, uncomplicated; E66.9 Obesity, unspecified; N40.0 Benign prostatic hyperplasia without lower urinary tract symptoms; K62.1 Rectal polyp; Z53.29 Procedure and treatment not carried out because of patient's decision for other reasons; Z79.899 Other long term (current) drug therapy; Z68.33 Body mass index [BMI] 33.0-33.9, adult; Z91.19 Patient's noncompliance with other medical treatment and regimen
CPT/HCPCS: 36415; 71045; 74018; 80048; 80053; 81003; 82150; 83036; 83690; 83735; 83880; 84100; 84439; 84443; 84484; 85025; 85610; 85730; 86886; 86900; 86901; 87081; 93005; C9113; J2250; J3010; J7030; J7042; Q0092

== ENCOUNTER 2020-05-31 07:37 | Emergency (ER) | payer OTHER ==
[~2020-05-31] VITALS: Ht 182.9 cm; Wt 113.4 kg
[~2020-05-31 07:37] MED LIST changes: -LOSA50TA66 PO; +TAMS0.4C96 PO
[2020-05-31 07:41] VITALS: BP 147/76
--- NOTE | 2020-05-31 07:59 | NUR ---
pt coming from home c/o lower back rashes for 3 days upon sitting on at chair sprayed with anti bug chemicals , denies sob , itchness nor pain , pt aox4 , afibrile , ambulatory with steady gait,pink palpebral conjunctiva , anicteric sclera , sce , round soft abdomen.with notable lower back rashes. pmhxs murmur meds nitro prn for pain.
--- NOTE | 2020-05-31 08:01 | NUR ---
dr arroyo at bedside evaluating pt.
[2020-05-31 08:14] VITALS: BP 147/76
--- NOTE | 2020-05-31 08:15 | NUR ---
Patient discharged with v/s stable. Written and verbal after care instructions given and explained regarding rash . Patient alert, oriented and verbalized understanding of instructions. Ambulatory with steady gait. All questions addressed prior to discharge. ID band removed. Patient advised to follow up with PMD. Rx of triamcinolone topical cream , benadryl and prednisone given. Patient educated on indication of medication including possible reaction and side effects. Opportunity to ask questions provided and answered.
== END 2020-05-31 08:15 | disposition home or self-care (01) ==
LOC: MED 07:37
DX: R21 Rash and other nonspecific skin eruption (principal); I10 Essential (primary) hypertension; Z79.899 Other long term (current) drug therapy
CPT/HCPCS: 99283

== ENCOUNTER 2020-08-31 13:59 | Emergency (ER) | payer OTHER ==
[~2020-08-31] VITALS: Ht 182.9 cm; Wt 117.5 kg
[~2020-08-31 13:59] MED LIST changes: +DIAZ10TA7 PO; +HYDR-5092 PO; +LEVO500T98 PO; +LORA10TA19 PO; +PANT40EC56 PO; -TAMS0.4C96 PO
[2020-08-31 14:07] VITALS: BP 150/95
--- NOTE | 2020-08-31 14:17 | NUR ---
PT TAKEN TO BED 7.
[2020-08-31] MEDS ORDERED: ALBUTEROL SULFATE/IPRATROPIU 3 ML SOL IH ONE (15:05)
--- NOTE | 2020-08-31 16:00 | NUR ---
pt seen and d/c by Dr. Rubio, no nursing care given.
--- NOTE | 2020-08-31 16:00 | NUR ---
Patient discharged with v/s stable. Written and verbal after care instructions given and explained. Patient verbalized understanding. Ambulatory with steady gait. All questions addressed prior to discharge. Advised to follow up with PMD. advised to f/u with pcp this week, recommend urgent bronchoscopy
[2020-08-31 16:03] VITALS: BP 148/76
== END 2020-08-31 16:00 | disposition home or self-care (01) ==
LOC: MED 13:59
DX: R06.02 Shortness of breath (principal); R06.2 Wheezing
CPT/HCPCS: 71046; 94640; 99283

== ENCOUNTER 2020-09-03 12:06 | Emergency (ER) | payer OTHER ==
[~2020-09-03] VITALS: Ht 182.9 cm; Wt 117.3 kg
--- NOTE | 2020-09-03 12:40 | NUR ---
DR. HANSEN BEDSIDE EVALUATING PATIENT
--- NOTE | 2020-09-03 12:55 | NUR ---
C/O OF ONE EPISODE OF SOB AND WHEEZING LAST NIGHT BUT STATES HAS SINCE SELF RESOLVED. DENIES MEDICAL COMPLAINTS AT THIS TIME. PATIENT PLACED IN GOWN, PLACED ON BEDSIDE FINANCIAL SYSTEMS MANAGER. BED IN LOWEST POSITION, SIDE RAIL UP X1
--- NOTE | 2020-09-03 13:05 | NUR ---
Patient discharged with v/s stable. Written and verbal after care instructions given and explained. Patient alert, oriented and verbalized understanding of instructions. Ambulatory with steady gait. All questions addressed prior to discharge. ID band removed. Patient advised to follow up with PMD. Rx of PREDNISONE, AEROCHAMBER, AND ALBUTEROL given. Patient educated on indication of medication including possible reaction and side effects. Opportunity to ask questions provided and answered.
[2020-09-03 13:39] VITALS: BP 130/62
== END 2020-09-03 13:05 | disposition home or self-care (01) ==
LOC: MED 12:06
DX: J44.1 Chronic obstructive pulmonary disease with (acute) exacerbation (principal); I10 Essential (primary) hypertension; I51.89 Other ill-defined heart diseases; J45.909 Unspecified asthma, uncomplicated; Z79.899 Other long term (current) drug therapy
CPT/HCPCS: 99283

== ENCOUNTER 2020-09-14 16:46 | Emergency (ER) | payer OTHER ==
[~2020-09-14] VITALS: Ht 182.9 cm; Wt 113.4 kg
[2020-09-14 16:53] VITALS: BP 136/85
[2020-09-14 18:15] LABS: BASOPHILS % (AUTO) 0.5 % (0.0-2.0); EOSINOPHILS # (AUTO) 0.2 K/uL (0-0.4); HEMATOCRIT 38.5 % (36-52); HEMOGLOBIN 12.9 g/dL (12.0-18.0); LYMPHOCYTES # (AUTO) 1.4 K/uL (2.0-11.5); MEAN CORPUSCULAR HEMOGLOBIN 30 pg (27-31); MEAN CORPUSCULAR HGB CONC 33 g/dL (33-37); MEAN CORPUSCULAR VOLUME 88.2 fL (80-94); MONOCYTES # (AUTO) 0.7 K/uL (0.8-1.0); MONOCYTES % (AUTO) 9.5 % (1.7-9.3); NEUTROPHILS # (AUTO) 4.9 K/uL (1.8-7.7); PLATELET COUNT (AUTO) 214 K/uL (140-450); RED BLOOD CELL COUNT(AUTO) 4.37 MIL/uL (4.20-6.10); RED CELL DISTRIBUTION WIDTH 14.1 % (11.6-13.7); WHITE BLOOD COUNT (AUTO) 7.2 K/uL (4.8-10.8)
[2020-09-14 18:42] LABS: ALBUMIN 3.6 g/dL (3.4-5.0); ANION GAP 10.9 (8-16); ASPARTATE AMINOTRANSFERASE 21 U/L (15-37); CARBON DIOXIDE 29.5 mmol/L (21-32); CHLORIDE 99 mmol/L (98-107); CREATININE 1.3 mg/dL (0.6-1.3); GLUCOSE 242 mg/dL (74-106); POTASSIUM 4.4 mmol/L (3.5-5.1); SODIUM SERUM 135 mmol/L (136-145); TOTAL BILIRUBIN 0.7 mg/dL (0.0-1.0); UREA NITROGEN, BLOOD 25 mg/dL (7-18)
[2020-09-14 19:57] VITALS: BP 135/89
== END 2020-09-14 19:56 | disposition home or self-care (01) ==
LOC: MED 16:46
DX: R07.89 Other chest pain (principal); R05 Cough; R06.02 Shortness of breath; J44.9 Chronic obstructive pulmonary disease, unspecified; I10 Essential (primary) hypertension; F17.200 Nicotine dependence, unspecified, uncomplicated; Z79.899 Other long term (current) drug therapy
CPT/HCPCS: 36415; 71045; 80053; 83880; 84484; 85025; 93005; 99285

== ENCOUNTER 2021-01-07 12:13 | Emergency (ER) | payer OTHER ==
[~2021-01-07] VITALS: Ht 182.9 cm; Wt 108.9 kg
[2021-01-07 12:20] VITALS: BP 167/89
--- NOTE | 2021-01-07 12:23 | NUR ---
PT TAKEN TO LOBBY.
--- NOTE | 2021-01-07 12:27 | NUR ---
PT AMBULATED TO ER BED 4 WITH A STEADY GAIT.
--- NOTE | 2021-01-07 12:34 | NUR ---
75 Y/O MALE C/O DIZZINESS/LIGHTHEADED SINCE THIS MORNING. PATIENT STATES HE SPRAYED BUG SPRAY AROUND HIS SITTING AREA FOR THE LAST THREE DAYS, AND BELIEVES HE ACCIDENTALLY POISONED HIMSELF WITH BUG SPRAY. PT +N/V. AMBULATORY WITH STEADY GAIT. PT DENIES FEVER/CHILLS. PMH: ASTHMA, HTN NKA
[2021-01-07 13:46] LABS: ANION GAP 10.5 (8-16); CARBON DIOXIDE 30.8 mmol/L (21-32); CHLORIDE 99 mmol/L (98-107); CREATININE 1.1 mg/dL (0.6-1.3); GLUCOSE 132 mg/dL (74-106); POTASSIUM 4.3 mmol/L (3.5-5.1); SODIUM SERUM 136 mmol/L (136-145); UREA NITROGEN, BLOOD 20 mg/dL (7-18)
[2021-01-07 13:49] LABS: HEMATOCRIT 35.6 % (36-52); MEAN CORPUSCULAR HEMOGLOBIN 29 pg (27-31); MEAN CORPUSCULAR HGB CONC 34 g/dL (33-37); MEAN CORPUSCULAR VOLUME 86.8 fL (80-94); RED BLOOD CELL COUNT(AUTO) 4.11 MIL/uL (4.20-6.10); WHITE BLOOD COUNT (AUTO) 7.5 K/uL (4.8-10.8)
[2021-01-07 13:50] LABS: BASOPHILS % (AUTO) 0.5 % (0.0-2.0); EOSINOPHILS # (AUTO) 0.1 K/uL (0-0.4); EOSINOPHILS % (AUTO) 1.8 % (0.0-4.0); LYMPHOCYTES # (AUTO) 1.5 K/uL (2.0-11.5); LYMPHOCYTES % (AUTO) 20.1 % (20.5-51.1); MONOCYTES # (AUTO) 0.6 K/uL (0.8-1.0); MONOCYTES % (AUTO) 7.5 % (1.7-9.3); NEUTROPHILS # (AUTO) 5.3 K/uL (1.8-7.7); NEUTROPHILS % (AUTO) 70.1 % (42.2-75.2); PLATELET COUNT (AUTO) 184 K/uL (140-450)
[2021-01-07 13:51] LABS: ALBUMIN 3.6 g/dL (3.4-5.0); ASPARTATE AMINOTRANSFERASE 27 U/L (15-37); TOTAL BILIRUBIN 0.7 mg/dL (0.0-1.0)
--- NOTE | 2021-01-07 14:31 | NUR ---
Dr. Smith at pt bedside for further evaluation.
== END 2021-01-07 14:47 | disposition home or self-care (01) ==
LOC: MED 12:13
DX: R42 Dizziness and giddiness (principal); R51.9 Headache, unspecified; J45.909 Unspecified asthma, uncomplicated; I10 Essential (primary) hypertension; Z79.899 Other long term (current) drug therapy
CPT/HCPCS: 36415; 80053; 85025; 99283

== ENCOUNTER 2021-02-07 10:50 | Emergency (ER) | payer OTHER ==
[~2021-02-07] VITALS: Ht 180.3 cm; Wt 111.6 kg
[2021-02-07 10:57] VITALS: BP 170/80
--- NOTE | 2021-02-07 11:00 | NUR ---
PT C/O HEADACHE/HEAD PRESSURE X 2 WKS. DENIES CHANGE IN VISION. STATES APPROX 7 PAIN MEDHX: ASTHMA
[2021-02-07] MEDS ORDERED: KETOROLAC 30 MG/ML VIAL IM ONE (11:15)
[2021-02-07 11:38] LABS: BASOPHILS % (AUTO) 0.6 % (0.0-2.0); EOSINOPHILS # (AUTO) 0.2 K/uL (0-0.4); EOSINOPHILS % (AUTO) 3.1 % (0.0-4.0); HEMATOCRIT 36.6 % (36-52); HEMOGLOBIN 12.4 g/dL (12.0-18.0); LYMPHOCYTES # (AUTO) 1.9 K/uL (2.0-11.5); LYMPHOCYTES % (AUTO) 28.4 % (20.5-51.1); MEAN CORPUSCULAR HEMOGLOBIN 30 pg (27-31); MEAN CORPUSCULAR HGB CONC 34 g/dL (33-37); MEAN CORPUSCULAR VOLUME 87.8 fL (80-94); MONOCYTES # (AUTO) 0.7 K/uL (0.8-1.0); MONOCYTES % (AUTO) 10.4 % (1.7-9.3); NEUTROPHILS # (AUTO) 3.9 K/uL (1.8-7.7); NEUTROPHILS % (AUTO) 57.5 % (42.2-75.2); PLATELET COUNT (AUTO) 191 K/uL (140-450); RED BLOOD CELL COUNT(AUTO) 4.17 MIL/uL (4.20-6.10); RED CELL DISTRIBUTION WIDTH 14.1 % (11.6-13.7); WHITE BLOOD COUNT (AUTO) 6.8 K/uL (4.8-10.8)
[2021-02-07 12:02] LABS: ALBUMIN 3.9 g/dL (3.4-5.0); ASPARTATE AMINOTRANSFERASE 33 U/L (15-37); CARBON DIOXIDE 31.4 mmol/L (21-32); CHLORIDE 101 mmol/L (98-107); CREATININE 1.2 mg/dL (0.6-1.3); GLUCOSE 114 mg/dL (74-106); POTASSIUM 4.4 mmol/L (3.5-5.1); SODIUM SERUM 136 mmol/L (136-145); TOTAL BILIRUBIN 0.9 mg/dL (0.0-1.0); UREA NITROGEN, BLOOD 26 mg/dL (7-18)
--- NOTE | 2021-02-07 12:40 | NUR ---
DR MITCHELL AT BEDSIDE RE-EVALUATING PATIENT
[2021-02-07] MEDS ORDERED: NAPR-54 PO (12:44)
--- NOTE | 2021-02-07 12:57 | NUR ---
Patient discharged with v/s stable. Written and verbal after care instructions given and explained. Patient verbalized understanding. Ambulatory with steady gait. All questions addressed prior to discharge. Advised to follow up with PMD.
== END 2021-02-07 12:57 | disposition home or self-care (01) ==
LOC: MED 10:50
DX: R51.9 Headache, unspecified (principal); M54.2 Cervicalgia; J45.909 Unspecified asthma, uncomplicated; I10 Essential (primary) hypertension; Z79.899 Other long term (current) drug therapy
CPT/HCPCS: 36415; 71045; 80053; 83036; 84439; 84443; 85025; 93005; 96372; 99285; J1885

== ENCOUNTER 2021-03-16 13:59 | Emergency (ER) | payer OTHER ==
[~2021-03-16] VITALS: Ht 182.9 cm; Wt 110.2 kg
[~2021-03-16 13:59] MED LIST changes: +NAPR-54 PO
[2021-03-16 14:13] VITALS: BP 151/103
--- NOTE | 2021-03-16 14:37 | NUR ---
76/M presents to ED with c/o head pain and nausea. Patient staes for the last 3-4 weeks he has been experiencing a pressure head pain radiating down to his left neck. Patient also states intermittent bloating and nausea for 3-4 weeks. Patient denies taking anything at home for pain or nausea. States he has no pain or nausea at the moment. Patient denies dysuria, hematuria, or diarrhea.
[2021-03-16] MEDS ORDERED: MAGNESIUM CITRATE 300 ML BTL PO ONE (15:25)
[2021-03-16] MEDS ORDERED: KETOROLAC 30 MG/ML VIAL IM ONE (15:25)
[2021-03-16] MEDS ORDERED: GABA-636 PO (15:27)
[2021-03-16] MEDS ORDERED: ONDA-24 SL (15:27)
--- NOTE | 2021-03-16 16:04 | NUR ---
Lab at bedside
[2021-03-16 16:15] LABS: BASOPHILS # (AUTO) 0.1 K/uL (0.00-0.22); BASOPHILS % (AUTO) 0.7 % (0.0-2.0); EOSINOPHILS # (AUTO) 0.2 K/uL (0-0.4); EOSINOPHILS % (AUTO) 2.4 % (0.0-4.0); HEMOGLOBIN 12.4 g/dL (12.0-18.0); LYMPHOCYTES # (AUTO) 1.1 K/uL (2.0-11.5); LYMPHOCYTES % (AUTO) 14.8 % (20.5-51.1); MEAN CORPUSCULAR HEMOGLOBIN 30 pg (27-31); MEAN CORPUSCULAR HGB CONC 34 g/dL (33-37); MEAN CORPUSCULAR VOLUME 88.9 fL (80-94); MONOCYTES # (AUTO) 0.5 K/uL (0.8-1.0); MONOCYTES % (AUTO) 7.2 % (1.7-9.3); NEUTROPHILS # (AUTO) 5.4 K/uL (1.8-7.7); NEUTROPHILS % (AUTO) 74.9 % (42.2-75.2); PLATELET COUNT (AUTO) 209 K/uL (140-450); RED BLOOD CELL COUNT(AUTO) 4.16 MIL/uL (4.20-6.10); RED CELL DISTRIBUTION WIDTH 13.5 % (11.6-13.7); WHITE BLOOD COUNT (AUTO) 7.2 K/uL (4.8-10.8)
[2021-03-16 16:28] LABS: ANION GAP 8.7 (8-16); CARBON DIOXIDE 29.7 mmol/L (21-32); CHLORIDE 104 mmol/L (98-107); GLUCOSE 121 mg/dL (74-106); POTASSIUM 4.4 mmol/L (3.5-5.1); SODIUM SERUM 138 mmol/L (136-145); UREA NITROGEN, BLOOD 22 mg/dL (7-18)
[2021-03-16 16:43] LABS: ALBUMIN 3.6 g/dL (3.4-5.0); ASPARTATE AMINOTRANSFERASE 35 U/L (15-37); THYROID STIMULATING HORMONE 2.08 uIU/mL (0.34-3.74); TOTAL BILIRUBIN 0.9 mg/dL (0.0-1.0)
[2021-03-16] MEDS ORDERED: CYCL-711 PO (17:11)
[2021-03-16] MEDS ORDERED: KETO10TA2 PO (17:11)
[2021-03-16 17:30] VITALS: BP 140/90
--- NOTE | 2021-03-16 17:30 | NUR ---
Patient discharged with v/s stable. Written and verbal after care instructions given and explained. Patient alert, oriented and verbalized understanding of instructions. Ambulatory with steady gait. All questions addressed prior to discharge. ID band removed. Patient advised to follow up with PMD. Rx of Flexeril, Cyclobenzaprine, Ketorolac, Ondansetron given. Patient educated on indication of medication including possible reaction and side effects. Opportunity to ask questions provided and answered.
== END 2021-03-16 17:30 | disposition home or self-care (01) ==
LOC: MED 13:59
DX: M54.2 Cervicalgia (principal); R11.2 Nausea with vomiting, unspecified; R14.0 Abdominal distension (gaseous); R20.2 Paresthesia of skin; R61 Generalized hyperhidrosis; J45.909 Unspecified asthma, uncomplicated; I10 Essential (primary) hypertension; Z79.899 Other long term (current) drug therapy
CPT/HCPCS: 36415; 80053; 84443; 85025; 96372; 99283; J1885

== ENCOUNTER 2021-05-25 05:37 | Emergency (ER) | payer OTHER ==
[~2021-05-25] VITALS: Ht 182.9 cm; Wt 112.5 kg
[~2021-05-25 05:37] MED LIST changes: +CYCL-711 PO; +GABA-636 PO; +KETO10TA2 PO; +ONDA-24 SL
[2021-05-25 05:40] VITALS: BP 149/78
--- NOTE | 2021-05-25 06:50 | NUR ---
76 YO/M BIB SELF W CO OF SWEATING ALOT SINCE 0500 THIS MORNING UPON WAKING UP AND SOME NAUSEA. SKIN WARM AND DRY, PATIENT REPORTS HE ISNT SWEATING ANYMORE AND FEELS BETTER. DENIES PAIN, CHEST PAIN OR SOB. DENIES FEVERS, DIARRHEA, OR VOMITING. PATIENT REPORTS HE TAKES METHADONE AND REPORTS HE TOOK NITRO AT 0530. PATIENT CONNECTED TO MONITOR W VSS. PATIENT LAYING IN BED LOCKED IN LOWEST POSITION. X1 SIDE RAIL UP, BREATHING EVEN AND UNLABORED. NAD NOTED, WILL CONTINUE TO MONITOR. UNABLE TO PROVIDE URINE AT THIS TIME, WILL ATTEMPT IN A FEW MINUTES. PMH:ASTHMA, HTN NKA
--- NOTE | 2021-05-25 07:24 | NUR ---
RECEIVED REPORT FROM RENE JIMENEZ. TRANSFER OF CARE AT THIS TIME.
--- NOTE | 2021-05-25 07:24 | NUR ---
Pt report given to RENE ESTRELLA. Transfer of care at this time.
[2021-05-25 07:31] LABS: BASOPHILS % (AUTO) 0.3 % (0.0-2.0); EOSINOPHILS # (AUTO) 0.1 K/uL (0-0.4); EOSINOPHILS % (AUTO) 1.6 % (0.0-4.0); HEMATOCRIT 36.1 % (36-52); LYMPHOCYTES # (AUTO) 1.4 K/uL (2.0-11.5); LYMPHOCYTES % (AUTO) 17.9 % (20.5-51.1); MEAN CORPUSCULAR HEMOGLOBIN 30 pg (27-31); MEAN CORPUSCULAR HGB CONC 33 g/dL (33-37); MEAN CORPUSCULAR VOLUME 89.8 fL (80-94); MONOCYTES # (AUTO) 0.5 K/uL (0.8-1.0); NEUTROPHILS # (AUTO) 5.7 K/uL (1.8-7.7); NEUTROPHILS % (AUTO) 73.2 % (42.2-75.2); PLATELET COUNT (AUTO) 193 K/uL (140-450); RED BLOOD CELL COUNT(AUTO) 4.02 MIL/uL (4.20-6.10); RED CELL DISTRIBUTION WIDTH 13.3 % (11.6-13.7); WHITE BLOOD COUNT (AUTO) 7.8 K/uL (4.8-10.8)
[2021-05-25 07:54] LABS: ANION GAP 11.4 (8-16); CARBON DIOXIDE 27.6 mmol/L (21-32); CHLORIDE 103 mmol/L (98-107); CREATININE 1.1 mg/dL (0.6-1.3); GLUCOSE 145 mg/dL (74-106); SODIUM SERUM 138 mmol/L (136-145); UREA NITROGEN, BLOOD 20 mg/dL (7-18)
[2021-05-25 08:00] LABS: FREE T4 (FREE THYROXINE) 0.91 ng/dL (0.76-1.46); THYROID STIMULATING HORMONE 2.26 uIU/mL (0.34-3.74)
--- NOTE | 2021-05-25 08:33 | NUR ---
Dr. Powers with pt for re evaluation.
[2021-05-25] MEDS ORDERED: ONDA-24 SL (08:45)
[2021-05-25 08:49] VITALS: BP 137/68
--- NOTE | 2021-05-25 09:08 | NUR ---
Patient discharged with v/s stable. Written and verbal after care instructions given PLEURAL EFFUSION and explained. Patient alert, oriented and verbalized understanding of instructions. Ambulatory with steady gait. All questions addressed prior to discharge. ID band removed. Patient advised to follow up with PMD. Rx of ZOFRAN 4MG PO Q8H PRN N/V given. Patient educated on indication of medication including possible reaction and side effects. Opportunity to ask questions provided and answered.
== END 2021-05-25 08:49 | disposition home or self-care (01) ==
LOC: MED 05:37
DX: J90 Pleural effusion, not elsewhere classified (principal); R14.0 Abdominal distension (gaseous); J45.909 Unspecified asthma, uncomplicated; I10 Essential (primary) hypertension; Z79.899 Other long term (current) drug therapy
CPT/HCPCS: 36415; 71045; 80048; 81002; 84439; 84443; 84484; 85025; 93005; 99285

== ENCOUNTER 2021-06-15 11:00 | Emergency (ER) | payer OTHER ==
[~2021-06-15] VITALS: Ht 182.9 cm; Wt 114.5 kg
[2021-06-15 11:50] VITALS: BP 144/104
--- NOTE | 2021-06-15 12:05 | NUR ---
PT IN ER LOBBY C/O RT RIB/CP, SWEATING X 3 WEEKS. - TRAUMA, NO SOB HX-NONE MEDS-METHADONE
== END 2021-06-15 13:34 | disposition home or self-care (01) ==
LOC: MED 11:00
DX: R07.9 Chest pain, unspecified (principal); R61 Generalized hyperhidrosis; E11.9 Type 2 diabetes mellitus without complications
CPT/HCPCS: 71045; 93005; 99283

== ENCOUNTER 2021-10-29 21:58 | Emergency (ER) | payer OTHER ==
[~2021-10-29] VITALS: Ht 182.9 cm; Wt 102.1 kg
[~2021-10-29 21:58] MED LIST changes: +LEVO-315 PO; -LEVO500T98 PO; +ONDA-188 SL; -ONDA-24 SL
[2021-10-29 22:10] VITALS: BP 135/80
--- NOTE | 2021-10-29 22:10 | NUR ---
to tent ambulatory
--- NOTE | 2021-10-29 22:25 | NUR ---
SEEN AND EXAMINED BY DANTE
--- NOTE | 2021-10-30 00:20 | NUR ---
DANTE, WENT TO SEE THE PATIENT , HES NOT THERE. PATIENT LEFT WITHOUT BEING SEEN BY DR. CASTELLON. NO FURTHER CARE PROVIDED FOR PATIENT.
== END 2021-10-30 00:20 | disposition left against medical advice (07) ==
LOC: MED 21:58
DX: R06.02 Shortness of breath (principal); Z53.21 Procedure and treatment not carried out due to patient leaving prior to being seen by health care provider
CPT/HCPCS: 71045

== ENCOUNTER 2024-01-11 19:14 | Emergency (ER) | payer OTHER ==
[~2024-01-11] VITALS: Ht 182.9 cm; Wt 115.7 kg
[~2024-01-11 19:14] MED LIST changes: +ASPI-1205 PO; +AZIT250T3 PO; +CEPH-588 PO; +DEC1 PO; +DIAZ-950 PO; -DIAZ10TA7 PO; -LEVO-315 PO; +LEVO-481 PO; -LORA10TA19 PO
[2024-01-11 19:35] VITALS: BP 166/78; PULSE 87; RESP 16; TEMP 98.2
[2024-01-11 20:11] LABS: BASOPHILS # (AUTO) 0.1 K/uL (0.00-0.22); EOSINOPHILS # (AUTO) 0.2 K/uL (0-0.4); EOSINOPHILS % (AUTO) 2.8 % (0.0-4.0); LYMPHOCYTES # (AUTO) 1.8 K/uL (2.0-11.5); LYMPHOCYTES % (AUTO) 29.1 % (20.5-51.1); MEAN CORPUSCULAR HEMOGLOBIN 31 pg (27-31); MEAN CORPUSCULAR HGB CONC 34 g/dL (33-37); MEAN CORPUSCULAR VOLUME 89.9 fL (80-94); MONOCYTES # (AUTO) 0.5 K/uL (0.8-1.0); MONOCYTES % (AUTO) 8.1 % (1.7-9.3); NEUTROPHILS # (AUTO) 3.6 K/uL (1.8-7.7); PLATELET COUNT (AUTO) 200 K/uL (140-450); RED CELL DISTRIBUTION WIDTH 13.3 % (11.6-13.7); WHITE BLOOD COUNT (AUTO) 6.1 K/uL (4.8-10.8)
[2024-01-11 20:19] LABS: ANION GAP 7.3 (8-16); CALCIUM 9.2 mg/dL (8.5-10.1); CARBON DIOXIDE 32.1 mmol/L (21-32); CHLORIDE 101 mmol/L (98-107); CREATININE 1.1 mg/dL (0.6-1.3); GLUCOSE 188 mg/dL (74-106); POTASSIUM 4.4 mmol/L (3.5-5.1); SODIUM SERUM 136 mmol/L (136-145); UREA NITROGEN, BLOOD 16 mg/dL (7-18)
[2024-01-11 20:24] LABS: INR 1.02 (0.8-1.2); PARTIAL THROMBOPLASTIN TIME 23.1 secs (22-35.6); PROTHROMBIN TIME 10.7 secs (10.8-13.4)
[2024-01-11 21:41] VITALS: O2SAT 97
[2024-01-11] MEDS: ASPIRIN 325 MG TAB PO ONE (22:46)
[2024-01-12 00:27] VITALS: BP 135/78; PULSE 64; RESP 14
[2024-01-12] MEDS ORDERED: SPIR50TA PO (01:18)
[2024-01-12] MEDS ORDERED: TAMS0.4C96 PO (01:18)
[2024-01-12] MEDS ORDERED: SITA100T8 PO (01:18)
[2024-01-12 01:19] VITALS: O2SAT 97
== END 2024-01-12 01:57 | disposition left against medical advice (07) ==
LOC: MED 19:14
DX: R07.9 Chest pain, unspecified (principal); J45.909 Unspecified asthma, uncomplicated; I10 Essential (primary) hypertension; Z79.899 Other long term (current) drug therapy
CPT/HCPCS: 36415; 71045; 80048; 83880; 84484; 85025; 85610; 85730; 93005; 99285

== ENCOUNTER 2024-02-23 19:25 | Emergency (ER) | payer OTHER ==
[~2024-02-23] VITALS: Ht 182.9 cm; Wt 113.4 kg
[~2024-02-23 19:25] MED LIST changes: +NAPR-337 PO; -NAPR-54 PO; +SITA100T8 PO; +SPIR50TA PO; +TAMS0.4C96 PO
[2024-02-23 19:33] VITALS: BP 135/87; PULSE 102; RESP 18; TEMP 97.4; O2SAT 93
[2024-02-23] MEDS: ALBUTEROL SULFATE/IPRATROPIU 3 ML SOL IH ONE ×2 (20:00→21:32)
[2024-02-23 20:31] LABS: BASOPHILS % (AUTO) 0.3 % (0.0-2.0); EOSINOPHILS # (AUTO) 0.1 K/uL (0-0.4); HEMATOCRIT 35.1 % (36-52); HEMOGLOBIN 12.2 g/dL (12.0-18.0); LYMPHOCYTES # (AUTO) 1.5 K/uL (2.0-11.5); LYMPHOCYTES % (AUTO) 17.5 % (20.5-51.1); MEAN CORPUSCULAR HEMOGLOBIN 31 pg (27-31); MEAN CORPUSCULAR HGB CONC 35 g/dL (33-37); MEAN CORPUSCULAR VOLUME 88.9 fL (80-94); MONOCYTES # (AUTO) 0.7 K/uL (0.8-1.0); NEUTROPHILS # (AUTO) 6.4 K/uL (1.8-7.7); NEUTROPHILS % (AUTO) 73.2 % (42.2-75.2); PLATELET COUNT (AUTO) 222 K/uL (140-450); RED BLOOD CELL COUNT(AUTO) 3.95 MIL/uL (4.20-6.10); WHITE BLOOD COUNT (AUTO) 8.8 K/uL (4.8-10.8)
[2024-02-23 20:42] LABS: ANION GAP 15.3 (8-16); CALCIUM 9.3 mg/dL (8.5-10.1); CARBON DIOXIDE 29.1 mmol/L (21-32); CHLORIDE 96 mmol/L (98-107); CREATININE 1.8 mg/dL (0.6-1.3); GLUCOSE 122 mg/dL (74-106); POTASSIUM 4.4 mmol/L (3.5-5.1); SODIUM SERUM 136 mmol/L (136-145); UREA NITROGEN, BLOOD 24 mg/dL (7-18)
[2024-02-23 21:33] VITALS: PULSE 84; RESP 20; O2SAT 95
[2024-02-23] MEDS: DEXAMETHASONE 10 MG/ML VIAL PO ONE (21:37)
[2024-02-23] MEDS ORDERED: ALBU0.0912 IH (21:48)
[2024-02-23 21:57] VITALS: BP 142/92; PULSE 84; RESP 20; TEMP 97.4; O2SAT 95
== END 2024-02-23 21:57 | disposition home or self-care (01) ==
LOC: MED 19:25
DX: J44.1 Chronic obstructive pulmonary disease with (acute) exacerbation (principal); N17.9 Acute kidney failure, unspecified; E11.9 Type 2 diabetes mellitus without complications; I10 Essential (primary) hypertension; Z79.1 Long term (current) use of non-steroidal anti-inflammatories (NSAID); Z79.2 Long term (current) use of antibiotics; Z79.82 Long term (current) use of aspirin; Z79.84 Long term (current) use of oral hypoglycemic drugs; Z79.899 Other long term (current) drug therapy
CPT/HCPCS: 36415; 71045; 80048; 83880; 84484; 85025; 93005; 94640; 99285; J1100

== ENCOUNTER 2024-05-05 12:24 | Emergency (ER) | payer OTHER ==
[~2024-05-05] VITALS: Ht 182.9 cm; Wt 114.3 kg
[~2024-05-05 12:24] MED LIST changes: +ALBU0.0912 IH
[2024-05-05 12:28] VITALS: BP 147/58; PULSE 89; RESP 18; TEMP 98; O2SAT 99
[2024-05-05 13:24] LABS: BASOPHILS % (AUTO) 0.4 % (0.0-2.0); EOSINOPHILS # (AUTO) 0.2 K/uL (0-0.4); EOSINOPHILS % (AUTO) 2.7 % (0.0-4.0); HEMOGLOBIN 10.3 g/dL (12.0-18.0); LYMPHOCYTES # (AUTO) 1.4 K/uL (2.0-11.5); LYMPHOCYTES % (AUTO) 21.2 % (20.5-51.1); MEAN CORPUSCULAR HEMOGLOBIN 31 pg (27-31); MEAN CORPUSCULAR HGB CONC 33 g/dL (33-37); MEAN CORPUSCULAR VOLUME 91.9 fL (80-94); MONOCYTES # (AUTO) 0.5 K/uL (0.8-1.0); NEUTROPHILS # (AUTO) 4.6 K/uL (1.8-7.7); NEUTROPHILS % (AUTO) 68.7 % (42.2-75.2); PLATELET COUNT (AUTO) 214 K/uL (140-450); RED BLOOD CELL COUNT(AUTO) 3.37 MIL/uL (4.20-6.10); WHITE BLOOD COUNT (AUTO) 6.8 K/uL (4.8-10.8)
[2024-05-05 13:36] LABS: ANION GAP 12.5 (8-16); CALCIUM 9.2 mg/dL (8.5-10.1); CARBON DIOXIDE 27.7 mmol/L (21-32); CHLORIDE 99 mmol/L (98-107); CREATININE 1.9 mg/dL (0.6-1.3); GLUCOSE 194 mg/dL (74-106); POTASSIUM 4.2 mmol/L (3.5-5.1); SODIUM SERUM 135 mmol/L (136-145); UREA NITROGEN, BLOOD 37 mg/dL (7-18)
[2024-05-05] MEDS ORDERED: BACI-418 TP (14:11)
[2024-05-05 15:00] VITALS: BP 147/58; PULSE 89; RESP 18; TEMP 98; O2SAT 99
== END 2024-05-05 15:00 | disposition home or self-care (01) ==
LOC: MED 12:24
DX: R22.41 Localized swelling, mass and lump, right lower limb (principal); J45.909 Unspecified asthma, uncomplicated; E11.9 Type 2 diabetes mellitus without complications; E78.5 Hyperlipidemia, unspecified; I10 Essential (primary) hypertension; Z79.1 Long term (current) use of non-steroidal anti-inflammatories (NSAID); Z79.2 Long term (current) use of antibiotics; Z79.899 Other long term (current) drug therapy
CPT/HCPCS: 36415; 80048; 83880; 85025; 93971; 99284; Q0092